=== PATIENT | female | born 1965 | race Two or more races ===

== ENCOUNTER 2016-11-28 08:21 | Emergency (ER) | payer OTHER ==
[2016-11-28 08:29] VITALS: TEMP 98.4
[2016-11-28 09:03] LABS: % IMMATURE GRANULYOCYTES 0.2 % (0.0-1.1); ABSOLUTE IMMATURE GRANULOCYTES 0.02 10^3/uL (0.00-0.10); ADD DIFF? NO; ADD MORPH? NO; ADD SCAN? NO; ATYPICAL LYMPHOCYTE FLAG 0 (0-99); FRAGMENT RBC FLAG 0 (0-99); HEMATOCRIT 40.9 % (38.0-47.0); LEFT SHIFT FLG 0 (0-99); LIPEMIA HEMOLYSIS FLAG 90 (0-99); MEAN CELL HEMOGLOBIN 30.5 pg (27.9-34.1); MEAN CELL HEMOGLOBIN CONCENTR. 34.2 g/dL (32.4-36.7); MEAN CELL VOLUME 89.1 fL (81.5-99.8); MEAN PLATELET VOLUME 8.9 fL (8.7-11.7); PLATELET CLUMPS FLAG 20 (0-99); PLATELET COUNT 306 10^3/uL (150-400); RED BLOOD CELL COUNT 4.59 10^6/uL (4.18-5.33); RED CELL DISTRIBUTION WIDTH 12.7 % (11.5-15.2)
[2016-11-28 09:20] LABS: ANION GAP 12 mEq/L (8-16); CALCIUM 9.1 mg/dL (8.5-10.4); CARBON DIOXIDE 26 mEq/l (22-31); CHLORIDE 104 mEq/L (97-110); CREATININE 0.8 mg/dL (0.6-1.0); GLOMERULAR FILTRATION RATE > 60; GLUCOSE 103 mg/dL (70-100); POTASSIUM 3.6 mEq/L (3.5-5.2); SODIUM 142 mEq/L (134-144)
--- NOTE | 2016-11-28 09:23 | EDPHY ---
General - History Smoking Status: Never smoked Time Seen by Provider: 11/28/16 08:51 Narrative: CHIEF COMPLAINT: abdominal pain, vaginal bleeding HISTORY OF PRESENT ILLNESS: patient reports approximately 1 month of vaginal bleeding. This has been intermittently mild to moderate flow. She also has had 3 days of left lower quadrant and lower pelvic pain. This was gradual onset. Constant duration. Never goes away but does wax and wane in severity from moderate to severe. Nausea but no vomiting. No fever chills. No constipation diarrhea. No bloody stools or emesis. No trauma. She has been seen by her police detention attendant this past week but has not ever had an ultrasound or imaging. 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 No other associated complaints or modifying factors. PREVIOUS ABDOMINAL SURGERIES/DIAGNOSES: Right nephrectomy 20 years ago NPO: breakfast this morning REVIEW OF SYSTEMS: Ten systems reviewed and are negative unless otherwise noted in the HPI EXAMINATION: General Appearance: Alert, no distress Head: normocephalic, atraumatic Eyes: Pupils equal and round, no conjunctival pallor or injection ENT, Mouth: Mucous membranes moist. Uvula midline. No erythema or edema. Neck: Normal inspection, supple, non-tender Respiratory: Lungs are clear to auscultation . No wheezing, rhonchi or crackles. Cardiovascular: Regular rate and rhythm . No murmur. Pulses intact distally. Gastrointestinal: Abdomen is soft . There is left lower quadrant / pelvic tenderness to palpation. Mild guarding in the left lower quadrant. No rebound tenderness. No rigidity. No tympany. No CVA tenderness. No right-sided or upper Abdominal tenderness. Neurological: A&O, nonfocal, normal gait . Strength is symmetric Skin: Warm and dry, no rash Extremities: Nontender, no pedal edema Psychiatric: Mood and affect normal DIFFERENTIAL DIAGNOSES: Including but not limited to Ovarian cysts, dysfunctional uterine bleeding, perimenopause, diverticulosis, diverticulitis, colitis, enteritis, cystitis, interstitial cystitis MDM: 9:22 a.m. left lower quadrant and pelvic pain in the presence of vaginal bleeding for 1 month. She is moderately tender in the left lower quadrant/pelvis. CBC is unremarkable. She is afebrile. No diarrhea or bloody stools. I will obtain an ultrasound of the pelvis 1st. Possibility that we will also need a CT scan if this does not give us any information. The patient is comfortable with this plan and is declining pain medication at this time. She is resting comfortably in no acute distress. 11:40 a.m. notified by radiologist of the ultrasound findings of the pelvis. I have informed the patient of these findings. Given her significant left lower quadrant pain, I will obtain a CT scan of the abdomen pelvis rule out diverticulitis. She is comfortable this plan. I suspect that the cause of her pain is from the fibroid cyst that she will need follow-up with gynecology for outpatient care. 12:50 p.m. notified by radiologist the CT scan of the abdomen and pelvis is unremarkable for acute findings. I have informed the patient of this. She is resting comfortably. Her blood pressure is elevated but she tells me she has missed her medication yesterday and this morning. She has no symptoms from this. Pain is likely from fibroids and possibly ovarian cysts. She has already contacted her police detention attendant Dr. Oneil and has an appointment tomorrow with them at 1:15 a.m. in [place]. She will be discharged home with pain medication , nausea medication and return to emergency department precautions. She is comfortable this plan. We will provide a disc upon discharge home. ED Precautions: Worsening pain. Fever. Bloody stools. Bloody emesis. Constipation or diarrhea. SUPERVISION: This patient was independently evaluated without the aide of supervising physician. (Andrew Sousa) Medical Decision Making: The patient was evaluated and managed by the physician graduate assistant athletic trainer. I have reviewed this chart and I agree with the findings and plan of care as documented , as indicated by my signature. I am the secondary supervising physician. ( Shelly Khalil) - Objective Vital Signs: Initial Vital Signs Temperature (C) 36.9 C 11/28/16 08:27 Heart Rate 78 11/28/16 08:27 Respiratory Rate 14 11/28/16 08:27 Blood Pressure 201/114 H 11/28/16 08:27 O2 Sat (%) 96 11/28/16 08:27 O2 Delivery Mode Room Air Allergies/Adverse Reactions: latex Allergy (Verified 11/28/16 08:26) Home Medications: Medication Instructions Recorded Norethindrone 11/28/16 Ondansetron Odt [Zofran Odt 4 mg 4 mg PO Q6 PRN #12 tab 11/28/16 (*)] Valsartan 11/28/16 oxyCODONE HCL/ACETAMINOPHEN 1 each PO Q4-6PRN PRN #15 tablet 11/28/16 [Percocet 5-325 mg Tablet] Laboratory Results: Laboratory Results 11/28/16 08:45 11/28/16 08:45 11/28/16 11/28/16 11/28/16 09:19 08:45 08:45 WBC RBC Hgb Hct MCV MCH MCHC RDW Plt Count MPV Neut % (Auto) Lymph % (Auto) [place] % (Auto) Eos % (Auto) Baso % (Auto) Nucleat RBC Rel Count Absolute Neuts (auto) Absolute Lymphs (auto) Absolute Monos (auto) Absolute Eos (auto) Absolute Basos (auto) Absolute Nucleated RBC Immature Gran % Immature Gran # Sodium 142 mEq/L mEq/L (134-144) Potassium 3.6 mEq/L mEq/L (3.5-5.2) Chloride 104 mEq/L mEq/L (97-110) Carbon Dioxide 26 mEq/l mEq/l (22-31) Anion Gap 12 mEq/L mEq/L (8-16) BUN 21 mg/dL mg/dL (7-23) Creatinine 0.8 mg/dL mg/dL (0.6-1.0) Estimated GFR > 60 Glucose 103 mg/dL H mg/dL (70-100) Calcium 9.1 mg/dL mg/dL (8.5-10.4) Total Bilirubin 1.1 mg/dL mg/dL (0.1-1.4) Conjugated Bilirubin 0.3 mg/dL mg/dL (0.0-0.5) Unconjugated Bilirubin 0.8 mg/dL mg/dL (0.0-1.1) AST 20 IU/L IU/L (14-46) ALT 30 IU/L IU/L (9-52) Alkaline Phosphatase 71 IU/L IU/L (38-126) Total Protein 7.1 g/dL g/dL (6.3-8.2) Albumin 4.0 g/dL g/dL (3.5-5.0) Lipase 83.0 IU/L IU/L (23-300) Beta HCG, Qual NEGATIVE 11/28/16 08:45 WBC 8.99 10^3/uL 10^3/uL (3.80-9.50) RBC 4.59 10^6/uL 10^6/uL (4.18-5.33) Hgb 14.0 g/dL g/dL (12.6-16.3) Hct 40.9 % % (38.0-47.0) MCV 89.1 fL fL (81.5-99.8) MCH 30.5 pg pg (27.9-34.1) MCHC 34.2 g/dL g/dL (32.4-36.7) RDW 12.7 % % (11.5-15.2) Plt Count 306 10^3/uL 10^3/uL (150-400) MPV 8.9 fL fL (8.7-11.7) Neut % (Auto) 64.1 % % (39.3-74.2) Lymph % (Auto) 26.8 % % (15.0-45.0) [place] % (Auto) 4.4 % L % (4.5-13.0) Eos % (Auto) 3.9 % % (0.6-7.6) Baso % (Auto) 0.6 % % (0.3-1.7) Nucleat RBC Rel Count 0.0 % % (0.0-0.2) Absolute Neuts (auto) 5.76 10^3/uL 10^3/uL (1.70-6.50) Absolute Lymphs (auto) 2.41 10^3/uL 10^3/uL (1.00-3.00) Absolute Monos (auto) 0.40 10^3/uL 10^3/uL (0.30-0.80) Absolute Eos (auto) 0.35 10^3/uL 10^3/uL (0.03-0.40) Absolute Basos (auto) 0.05 10^3/uL 10^3/uL (0.02-0.10) Absolute Nucleated RBC 0.00 10^3/uL 10^3/uL (0-0.01) Immature Gran % 0.2 % % (0.0-1.1) Immature Gran # 0.02 10^3/uL 10^3/uL (0.00-0.10) Sodium Potassium Chloride Carbon Dioxide Anion Gap BUN Creatinine Estimated GFR Glucose Calcium Total Bilirubin Conjugated Bilirubin Unconjugated Bilirubin AST ALT Alkaline Phosphatase Total Protein Albumin Lipase Beta HCG, Qual Medications Given: Discontinued Medications Sodium Chloride (Ns) 1,000 mls @ 0 mls/hr IV ONCE ONE PRN Reason: Wide Open Stop: 11/28/16 11:47 Last Admin: 11/28/16 11:54 Dose: 1,000 mls Departure - Departure Disposition: Home, Routine, Self-Care Clinical Impression: Left lower quadrant abdominal pain of unknown etiology Ovarian cyst Qualifiers: Laterality: right Qualified Code(s): N83.201 - Unspecified ovarian cyst, right side Uterine fibroid Qualifiers: Uterine leiomyoma location: unspecified location Qualified Code(s): D25.9 - Leiomyoma of uterus, unspecified Condition: Good Instructions: Uterine Fibroids (ED), Acute Abdominal Pain (ED) Additional Instructions: Pain medication as needed. Follow up with police detention attendant tomorrow after 115 appointment. Resume your high blood pressure medications at this time. Referrals: CHARLY YOUSSEF [Other] - As per Instructions Prescriptions: Ondansetron Odt [Zofran Odt 4 mg (*)] 4 mg PO Q6 PRN #12 tab PRN Reason: Nausea/Vomiting, Use 1st oxyCODONE HCL/ACETAMINOPHEN [Percocet 5-325 mg Tablet] 1 each PO Q4-6PRN PRN # 15 tablet PRN Reason: Pain, Breakthrough
[2016-11-28 09:29] LABS: BILIRUBIN,TOTAL 1.1 mg/dL (0.1-1.4); BILIRUBIN-CONJUGATED 0.3 mg/dL (0.0-0.5); BILIRUBIN-UNCONJUGATED 0.8 mg/dL (0.0-1.1); TOTAL PROTEIN 7.1 g/dL (6.3-8.2)
[2016-11-28] MEDS ORDERED: NS 1,000 ML IV ONE (11:46)
[2016-11-28] MEDS ORDERED: IOPAMIDOL (ISOVUE-300) 100 ML BTL IV ONE (12:27)
[2016-11-28 13:12] VITALS: BP 175/97; PULSE 82; RESP 18; O2SAT 96
== END 2016-11-28 13:10 | disposition home or self-care (01) ==
DX: N83.201 Unspecified ovarian cyst, right side (principal); D25.9 Leiomyoma of uterus, unspecified; Z91.040 Latex allergy status
CPT/HCPCS: Q9967